=== PATIENT | female | born 1990 | race Caucasian/White ===

== ENCOUNTER 2017-05-03 22:57 | Emergency (ER) | payer OTHER ==
[~2017-05-03] VITALS: Ht 175.3 cm; Wt 65.9 kg
[2017-05-03 23:07] VITALS: BP 115/75; PULSE 65; RESP 12; O2SAT 98
--- NOTE | 2017-05-04 00:26 | ED.REPORT ---
HPI-Abd Pain M Under 39 Date of Service May 04, 2017 ED Provider: Nursing Notes Stated Complaint: LEFT TOE/TOENAIL INJURY Chief Complaint: Extremity Trauma Allergies: Coded Allergies: No Known Allergies (Unverified , 05/03/17) General Time Seen by MD: 00:26 Physical Exam Initial Vital Signs Vital Signs (First) Date Time Temp Pulse Resp B/P Pulse Ox O2 Delivery O2 Flow Rate FiO2 05/03/17 23:07 36.7 65 12 115/75 98 Room Air Vincent Corrigan DO May 04, 2017 00:26
--- NOTE | 2017-05-04 00:48 | ED.REPORT ---
HPI-Extremity Problem Lower Date of Service May 04, 2017 ED Provider: Pt is a 27 year old female presenting to the ED complaining of left 1st toe pain onset after she got it caught on the bed frame and ripped off the toenail around 2200 tonight. Associated symptoms include numbness. Denies any SOB, fever , chills, nausea or vomiting. Nursing Notes Stated Complaint: LEFT TOE/TOENAIL INJURY Chief Complaint: Extremity Trauma Nursing Notes Reviewed: Yes Allergies: Coded Allergies: No Known Allergies (Unverified , 05/03/17) General Time Seen by MD: 00:47 Chief Complaint Toe injury left 1 Hx Obtained From: Patient Arrived By: Walk-in Onset Occurred: 1 - 4 hours ago Symptom Duration: Since onset Location: : Toe left 1 Quality: Painful Severity: Current: Moderate Severity: Maximum: Severe Recent Healthcare: No recent doctor visit, No recent hospitalization Similar Sx Previous: No Past Medical History Past Medical History Fibromyaliga Migraines Reports: Asthma Past Surgical History denies Smoking History Unknown if Ever Smoker Ambulatory Status Independent Review of Systems Constitutional: Denies: Chills, Fever Musculoskeletal: Reports: Extremity pain, Extremity swelling, Joint pain, Joint swelling Neurologic: Reports: Numbness Complete sys rev & neg: except as marked. Respiratory: Denies: Shortness of breath GI: Denies: Nausea, Vomiting Physical Exam Initial Vital Signs Vital Signs (First) Date Time Temp Pulse Resp B/P Pulse Ox O2 Delivery O2 Flow Rate FiO2 05/03/17 23:07 36.7 65 12 115/75 98 Room Air Initial VS: Reviewed General/Constitutional: Well-developed, Well-nourished Head / Eyes: Atraumatic, Normocephalic, PERRL ENT: Mucous membranes moist, Conjunctiva normal, No scleral icterus Neck: Supple, Non-tender, Full range of motion Respiratory: Breath sounds normal, Clear to auscultation, No respiratory distress Cardiovascular: Regular rate & rhythm, Heart sounds normal, Intact distal pulses Abdomen / GI: Soft, Non-tender, No guarding, No rebound, No distention Upper Extremities: Vascular intact, Neuro intact, No swelling, No tenderness Skin: Warm, Dry, No cyanosis Neurologic: Alert, Oriented, Nonfocal Psychiatric: Mood/affect normal, Behavior normal, Normal thought content Ankle / Foot: No deformity, Neurologic intact, Vascular intact 1st toe diffusely tender with mild swelling. Nail lifted out of nail bed but tethered on the lateral edge. Sensation intact. Interpretation & Diagnostics X-Ray Interpretation Xray Interpretation: No fracture. X-Ray Ordered: Foot left Interpretation / Wet Read by: Wet read ED physician Procedures Procedure Notes: Toenail Removal: Left first toenail removed. Digital block of 1st great toe on L side with Lidocaine 1% without epi 4ccs. Pt tolerated procedure well. No underlying laceration noted. Dressed with sterile dressing and given postoperative shoe Re-Eval/Medical Decision Re-Evaluation/Progress : Time of Eval: 02:26 Patient Status: Condition improved Re-Evaluation/Progress Note: Removed the toenail and discussed plan for discharge. Pt understands and agrees with plan. Counseled Regarding: Diagnosis, Lab results, Need for follow-up, When/why to return to ED Discharge & Departure Impression: Primary Impression: Toe injury Encounter type: initial encounter Laterality: left Qualified Code: S99.922A - Unspecified injury of left foot, initial encounter Additional Impression: Nail avulsion of toe Encounter type: initial encounter Qualified Code: S91.209A - Unspecified open wound of unspecified toe(s) with damage to nail, initial encounter Ruled Out: Toe fracture Disposition: Home Discharge Condition All VS Reviewed: Yes Condition: Improved Patient Instructions: Nail Avulsion (ED), Nail Removal (ED) Additional Instructions: Your x ray did not show any sign of a fracture. Your toenail was almost completely ripped off so we removed it. You should have a good chance of your toenail growing back properly has the nail bed appears normal. The nail bed will be sensitive for a while until the nail grows back, which may take a few months. Wear the stiff shoe as needed for pain, and stick to open toed shoes. Return to the ER if you develop any new or worsening symptoms such as swelling or fever. You may call the number below to set up a follow up in [place] with a new primary care provider, and to have your foot rechecked if needed. Referrals: Damien Garduno PA-C Scribe Attestation Portions of this note were transcribed by Louise Murray. Dr. Meenu Dumont personally performed the history, physical exam and medical decision-making; I reviewed and confirmed the accuracy of the information in the transcribed note. Signed by: Willy Garza, 05/04/2017. copies to: Damien Garduno PA-C, Gary R DO May 04, 2017 00:48 LOUISE MURRAY May 04, 2017 01:05
[2017-05-04 01:23] VITALS: BP 119/80; PULSE 52; RESP 14; O2SAT 100
--- NOTE | 2017-05-04 13:18 | DRSVH ---
PROCEDURE: X-RAY LEFT FOOT COMPLETE, MINIMUM THREE VIEWS ([id number]) INDICATIONS: KICKED BED WITH BIG TOE 2 HOURS AGO TECHNIQUE: Three views of the foot were acquired. COMPARISON: None. FINDINGS: Bones: No fractures or dislocations. No suspicious bony lesions. Soft Tissues: No tibiotalar joint effusion. The Achilles tendon appears normal. IMPRESSION: No fracture seen. If there is continued pain, followup exam or additional imaging such as MRI or CT could be performed for further assessment. Dictated by: Jered Castle [facility] Interpreted: Dada Sandhu MD on 05/04/2017 at 8:30 Transcribed by: COLT on 05/04/2017 at 16:17 Approved by: Dada Sandhu M.D. on 05/04/2017 at 14:49
== END 2017-05-04 03:29 | disposition home or self-care (01) ==
LOC: SED 22:57
DX: S91.202A Unspecified open wound of left great toe with damage to nail, initial encounter (principal); W22.8XXA Striking against or struck by other objects, initial encounter; Y93.9 Activity, unspecified; Y92.9 Unspecified place or not applicable; Y99.9 Unspecified external cause status
CPT/HCPCS: 11730; 73630; 96372; 99284; J1885